=== PATIENT | female | born 1970 | race Native Hawaiian/Other Pacific Islander ===

== ENCOUNTER 2019-11-22 03:47 | Emergency (ER) | payer BC ==
[~2019-11-22] VITALS: Ht 165.1 cm; Wt 57.6 kg
[2019-11-22 04:39] LABS: POTASSIUM 3.4 mmol/L (3.6-5.2)
[2019-11-22 04:41] LABS: PLATELET COUNT 216 K/uL (152-353)
[2019-11-22 05:29] VITALS: BP 104/65; TEMP 98
== END 2019-11-22 05:30 | disposition home or self-care (01) ==
LOC: ED 03:47
PROVIDERS: Family Medicine
DX: R11.2 Nausea with vomiting, unspecified (principal); E86.0 Dehydration
CPT/HCPCS: 36415; 80053; 80307; 80320; 81000; 85027; 96360; 96375; 99284; J2405

== ENCOUNTER 2021-05-25 15:51 | Outpatient (CLI) | payer BC ==
[2021-05-25 17:08] LABS: PLATELET COUNT 238 K/uL (152-353)
== END 2021-05-25 19:15 | disposition home or self-care (01) ==
LOC: LAB 15:51
PROVIDERS: ATTEND Internal Medicine
DX: R79.89 Other specified abnormal findings of blood chemistry (principal)
CPT/HCPCS: 36415; 80053; 85027; 86308